=== PATIENT | male | born 1940 | race Caucasian/White ===

== ENCOUNTER 2020-06-14 16:54 | Inpatient (IN) | payer OTHER ==
[~2020-06-14] VITALS: Ht 170.2 cm; Wt 85.8 kg
--- NOTE | 2020-06-14 16:55 | NUR ---
PT BROUGHT IN IFT FROM [facility] FOR CHIEF COMPLAINT OF CP STARTING AT 8 AM. PER REPORT FROM EMS PT WAS RECENTLY DC FROM [facility] FOR NSTEMI 06/13. PRIOR ATTEMPT TO TRASNPORT TO [facility] FOR STENT WAS UNAVAILABLE. PT WAS MEDICATED WITH 324 MG ASA AND NITRO X2. CP HAS SINCE RESOLVED, NO OTHER COMPLAINTS AT THIS TIME.
[2020-06-14] MEDS ORDERED: LEVO50TA5 PO (17:10)
[2020-06-14] MEDS ORDERED: ASPI-498 PO (17:10)
[2020-06-14] MEDS ORDERED: ISOS30TA8 PO (17:10)
[2020-06-14] MEDS ORDERED: CLOP75TA52 PO (17:10)
[2020-06-14] MEDS ORDERED: PANT40TA3 PO (17:10)
[2020-06-14] MEDS ORDERED: METO25TA35 PO (17:10)
[2020-06-14] MEDS ORDERED: GABA-827 PO (17:10)
[2020-06-14] MEDS ORDERED: TAMS-11 PO (17:10)
[2020-06-14] MEDS ORDERED: ESCI10TA PO (17:10)
[2020-06-14] MEDS ORDERED: SIMV20TA19 PO (17:10)
--- NOTE | 2020-06-14 17:19 | NUR ---
ERMD TAY AT BEDSIDE FOR EVAL
[2020-06-14 17:51] LABS: BASOPHILS # (AUTO) 0.03 x10^3/uL (0-0.1); BASOPHILS % (AUTO) 0 % (0-1); EOSINOPHILS # (AUTO) 0.25 x10^3/uL (0-0.4); EOSINOPHILS % (AUTO) 3 % (1-7); LYMPHOCYTES # (AUTO) 1.81 x10^3/uL (1-3.4); LYMPHOCYTES % (AUTO) 23 % (22-44); MD NO; MEAN CORPUSCULAR HEMOGLOBIN 31.6 pg (27.5-34.5); MEAN CORPUSCULAR HGB CONC 33.3 g/dL (33.2-36.2); MEAN CORPUSCULAR VOLUME 95.1 fL (81-97); MEAN PLATELET VOLUME 9.1 fL (7.4-10.4); MONOCYTES # (AUTO) 0.72 x10^3/uL (0.2-0.8); MONOCYTES % (AUTO) 9 % (2-9); NEUTROPHILS # (AUTO) 5.06 x10^3/uL (1.8-6.8); NEUTROPHILS % (AUTO) 64 % (42-75); PLATELET COUNT 188 x10^3/uL (130-400); RED BLOOD COUNT 4.93 x10^6/uL (4.38-5.82); RED CELL DISTRIBUTION WIDTH 13.7 % (9.4-14.8)
--- NOTE | 2020-06-14 17:53 | NUR ---
Pt resting in bed, call light in reach, no complaints at this time.
[2020-06-14 17:57] LABS: ALBUMIN 3.5 g/dL (3.4-5.0); ANION GAP 6 mmol/L (5-15); CALCIUM 8.3 mg/dL (8.5-10.1); CHLORIDE 109 mmol/L (98-107)
[2020-06-14 18:02] LABS: CREATININE 1.08 mg/dL (0.7-1.3); TROPONIN I < 0.015 ng/mL (0.000-0.045)
--- NOTE | 2020-06-14 18:25 | NUR ---
SPOKE WITH PATIENT'S SON YURIY, UPDATED ON POC.
--- NOTE | 2020-06-14 18:52 | NUR ---
REPORT RECEIVED FROM MELE RN. PT RESTING ON [facility], HOSPITALIST AT . MONITORING IN PLACE, CALL LIGHT WITHIN REACH. ALL SAFETY MEASURES IN PLACE.
[2020-06-14] MEDS ORDERED: ONDANSETRON ODT 4 MG PO PRN (19:00)
[2020-06-14] MEDS ORDERED: BISACODYL 10 MG SUPP PR PRN (19:00)
[2020-06-14] MEDS ORDERED: NITROGLYCERIN 0.4 MG BOTTLE (25 TABS) SL PRN (19:00)
[2020-06-14] MEDS ORDERED: morphine SULFATE 10 MG/ML, 1ML IVPush PRN (19:00)
[2020-06-14] MEDS ORDERED: POLYETHYLENE GLYCOL 17 GM PACKET PO PRN (19:00)
[2020-06-14] MEDS ORDERED: DOCUSATE 100 MG CAPSULE PO PRN (19:00)
[2020-06-14] MEDS ORDERED: ACETAMINOPHEN 325 MG TABLET PO PRN (19:00)
--- NOTE | 2020-06-14 19:31 | NUR ---
PT RESTING ON GURNEY, UPDATED ON POC. MONITORING IN PLACE, CALL LIGHT WITHIN REACH. ALL SAFETY MEASURES IN PLACE.
--- NOTE | 2020-06-14 20:10 | NUR ---
EMERGENCY CONTACT CHARLENE SANTANA [phone]
[2020-06-14] MEDS ORDERED: GABAPENTIN 400 MG CAPSULE ONE (20:25)
[2020-06-14] MEDS ORDERED: HEPARIN 5,000 UNITS/ML, 1ML ONE (20:25)
[2020-06-14] MEDS: SODIUM CHLORIDE FLUSH 10ML SYR IVF SCH (20:54)
[2020-06-14] MEDS: GABAPENTIN 400 MG CAPSULE PO SCH (20:54)
[2020-06-14] MEDS: HEPARIN 5,000 UNITS/ML, 1ML SQ SCH (20:54)
--- NOTE | 2020-06-14 20:58 | NUR ---
PT MEDICATED PER MAR, UPDATED ON POC. CALL LIGHT WITHIN REACH, MONITORING IN PLACE.
[2020-06-14] MEDS ORDERED: SIMVASTATIN 20 MG TABLET PO SCH (21:00)
--- NOTE | 2020-06-14 23:26 | NUR ---
TASK RN: REPORT CALLED TO ALY HERRERA. PT PREPARED FOR TRANSPORT. AWAITING ROOM TO BE CLEANED.
[2020-06-14 23:57] LABS: TROPONIN I < 0.015 ng/mL (0.000-0.045)
[2020-06-15 00:09] VITALS: BP 162/96
[2020-06-15] MEDS: LEVOTHYROXINE 50 MCG TABLET PO SCH (05:24)
[2020-06-15] MEDS: HEPARIN 5,000 UNITS/ML, 1ML SQ SCH ×3 (05:25→22:34)
[2020-06-15 05:37] LABS: BASOPHILS # (AUTO) 0.04 x10^3/uL (0-0.1); BASOPHILS % (AUTO) 1 % (0-1); EOSINOPHILS # (AUTO) 0.34 x10^3/uL (0-0.4); EOSINOPHILS % (AUTO) 5 % (1-7); LYMPHOCYTES # (AUTO) 1.84 x10^3/uL (1-3.4); LYMPHOCYTES % (AUTO) 28 % (22-44); MD NO; MEAN CORPUSCULAR HEMOGLOBIN 31.9 pg (27.5-34.5); MEAN CORPUSCULAR HGB CONC 33.7 g/dL (33.2-36.2); MEAN CORPUSCULAR VOLUME 94.6 fL (81-97); MEAN PLATELET VOLUME 9.1 fL (7.4-10.4); MONOCYTES # (AUTO) 0.63 x10^3/uL (0.2-0.8); MONOCYTES % (AUTO) 10 % (2-9); NEUTROPHILS # (AUTO) 3.67 x10^3/uL (1.8-6.8); NEUTROPHILS % (AUTO) 56 % (42-75); PLATELET COUNT 173 x10^3/uL (130-400); RED BLOOD COUNT 4.99 x10^6/uL (4.38-5.82); RED CELL DISTRIBUTION WIDTH 13.3 % (9.4-14.8)
[2020-06-15 05:50] LABS: ANION GAP 6 mmol/L (5-15); CALCIUM 8.6 mg/dL (8.5-10.1); CHLORIDE 110 mmol/L (98-107)
[2020-06-15 05:54] LABS: CREATININE 1.05 mg/dL (0.7-1.3); TROPONIN I < 0.015 ng/mL (0.000-0.045)
[2020-06-15 07:26] VITALS: BP 168/100
[2020-06-15] MEDS: LISINOPRIL 20 MG TABLET PO SCH ×2 (09:00→21:00)
[2020-06-15] MEDS: ASPIRIN 81 MG TABLET EC PO SCH (09:00)
[2020-06-15] MEDS ORDERED: ASPIRIN 325 MG TABLET EC PO SCH (09:00)
[2020-06-15] MEDS: CLOPIDOGREL 75 MG TABLET PO SCH (09:00)
[2020-06-15] MEDS ORDERED: LISINOPRIL 10 MG TABLET PO SCH (09:00)
[2020-06-15] MEDS: TAMSULOSIN 0.4 MG CAP.ER.24H PO SCH (09:00)
[2020-06-15] MEDS: PANTOPRAZOLE 40MG TABLET PO SCH (09:00)
[2020-06-15] MEDS: ESCITALOPRAM 10MG TABLET PO SCH (09:00)
[2020-06-15] MEDS: GABAPENTIN 400 MG CAPSULE PO SCH ×3 (09:00→21:09)
[2020-06-15] MEDS ORDERED: METOPROLOL TARTRATE 25 MG TAB PO SCH (09:00)
[2020-06-15] MEDS ORDERED: ISOSORBIDE MONONITRATE ER 30 MG TABLET PO SCH (09:00)
[2020-06-15] MEDS: SODIUM CHLORIDE FLUSH 10ML SYR IVF SCH ×2 (09:01→21:09)
[2020-06-15] MEDS: ISOSORBIDE MONONITRATE ER 30 MG TABLET PO SCH (09:03)
[2020-06-15] MEDS: METOPROLOL SUCCINATE 50 MG TAB.ER.24H PO SCH (09:03)
[2020-06-15] MEDS: SODIUM CHLORIDE 0.9% 1,000 ML IV SCH ×3 (10:32→18:29)
[2020-06-15 12:27] VITALS: BP 105/65
[2020-06-15] MEDS ORDERED: LIDOCAINE 2%, 20ML ONE (12:46)
[2020-06-15] MEDS ORDERED: TICAGRELOR 90 MG TABLET ONE (12:46)
[2020-06-15] MEDS ORDERED: MIDAZOLAM 1 MG/ML, 5ML ONE (12:46)
[2020-06-15] MEDS ORDERED: BIVALIRUDIN 250 MG ONE ×2 (12:46→14:02)
[2020-06-15] MEDS ORDERED: FENTANYL PF 100 MCG/2ML ONE (12:46)
[2020-06-15] MEDS ORDERED: LIDOCAINE 1%, 20ML ONE (13:48)
[2020-06-15] MEDS ORDERED: NITROGLYCERIN 30 MCG/ML, 20ML VIAL ONE (13:48)
[2020-06-15] MEDS ORDERED: BIVALIRUDIN 250 MG in SODIUM CHLORIDE 0.9% 50 ML IV SCH (14:18)
[2020-06-15 19:42] VITALS: BP 95/57
[2020-06-15] MEDS: ATORVASTATIN 80 MG TABLET PO SCH (21:08)
[2020-06-16 00:52] VITALS: BP 100/54
[2020-06-16] MEDS: METOPROLOL SUCCINATE 50 MG TAB.ER.24H PO SCH (05:23)
[2020-06-16] MEDS: SODIUM CHLORIDE 0.9% 1,000 ML IV SCH (06:01)
[2020-06-16] MEDS: HEPARIN 5,000 UNITS/ML, 1ML SQ SCH ×3 (06:09→21:57)
[2020-06-16] MEDS: LEVOTHYROXINE 50 MCG TABLET PO SCH (06:09)
[2020-06-16 06:35] LABS: ANION GAP 6 mmol/L (5-15); CALCIUM 8.2 mg/dL (8.5-10.1); CHLORIDE 110 mmol/L (98-107); CREATININE 1.07 mg/dL (0.7-1.3)
[2020-06-16 06:37] LABS: BASOPHILS # (AUTO) 0.04 x10^3/uL (0-0.1); BASOPHILS % (AUTO) 1 % (0-1); EOSINOPHILS # (AUTO) 0.32 x10^3/uL (0-0.4); EOSINOPHILS % (AUTO) 4 % (1-7); LYMPHOCYTES # (AUTO) 1.54 x10^3/uL (1-3.4); LYMPHOCYTES % (AUTO) 18 % (22-44); MD NO; MEAN CORPUSCULAR HGB CONC 33.4 g/dL (33.2-36.2); MEAN CORPUSCULAR VOLUME 95.7 fL (81-97); MEAN PLATELET VOLUME 9.8 fL (7.4-10.4); MONOCYTES # (AUTO) 0.76 x10^3/uL (0.2-0.8); MONOCYTES % (AUTO) 9 % (2-9); NEUTROPHILS # (AUTO) 5.94 x10^3/uL (1.8-6.8); NEUTROPHILS % (AUTO) 69 % (42-75); PLATELET COUNT 161 x10^3/uL (130-400); RED BLOOD COUNT 4.32 x10^6/uL (4.38-5.82); RED CELL DISTRIBUTION WIDTH 13.9 % (9.4-14.8)
[2020-06-16 07:17] VITALS: BP 111/65
[2020-06-16] MEDS: ASPIRIN 81 MG TABLET EC PO SCH (08:52)
[2020-06-16] MEDS: TAMSULOSIN 0.4 MG CAP.ER.24H PO SCH (08:52)
[2020-06-16] MEDS: LISINOPRIL 20 MG TABLET PO SCH ×2 (08:52→20:30)
[2020-06-16] MEDS: GABAPENTIN 400 MG CAPSULE PO SCH ×3 (08:52→20:30)
[2020-06-16] MEDS: CLOPIDOGREL 75 MG TABLET PO SCH (08:52)
[2020-06-16] MEDS: PANTOPRAZOLE 40MG TABLET PO SCH (08:52)
[2020-06-16] MEDS: ISOSORBIDE MONONITRATE ER 30 MG TABLET PO SCH (08:53)
[2020-06-16] MEDS: ESCITALOPRAM 10MG TABLET PO SCH (08:53)
[2020-06-16] MEDS: SODIUM CHLORIDE FLUSH 10ML SYR IVF SCH ×2 (08:54→20:29)
[2020-06-16 12:21] VITALS: BP 123/56
[2020-06-16 19:21] VITALS: BP 113/57
[2020-06-16] MEDS: ATORVASTATIN 80 MG TABLET PO SCH (20:30)
[2020-06-17 01:05] VITALS: BP 127/62
[2020-06-17] MEDS: HEPARIN 5,000 UNITS/ML, 1ML SQ SCH ×3 (05:08→21:55)
[2020-06-17] MEDS: LEVOTHYROXINE 50 MCG TABLET PO SCH (05:08)
[2020-06-17 07:15] VITALS: BP 129/62
[2020-06-17] MEDS: LISINOPRIL 20 MG TABLET PO SCH ×2 (08:39→20:00)
[2020-06-17] MEDS: GABAPENTIN 400 MG CAPSULE PO SCH ×3 (08:39→20:00)
[2020-06-17] MEDS: TAMSULOSIN 0.4 MG CAP.ER.24H PO SCH (08:40)
[2020-06-17] MEDS: ASPIRIN 81 MG TABLET EC PO SCH (08:40)
[2020-06-17] MEDS: PANTOPRAZOLE 40MG TABLET PO SCH (08:40)
[2020-06-17] MEDS: CLOPIDOGREL 75 MG TABLET PO SCH (08:40)
[2020-06-17] MEDS: ESCITALOPRAM 10MG TABLET PO SCH (08:41)
[2020-06-17] MEDS: ISOSORBIDE MONONITRATE ER 30 MG TABLET PO SCH (08:41)
[2020-06-17] MEDS: SODIUM CHLORIDE FLUSH 10ML SYR IVF SCH ×2 (08:41→20:00)
[2020-06-17 14:45] VITALS: BP_SYST 104; BP_SYST 88; BP_DIAS 49; BP_DIAS 55
[2020-06-17 19:57] VITALS: BP 118/71
[2020-06-17] MEDS: ATORVASTATIN 80 MG TABLET PO SCH (20:00)
[2020-06-18 01:05] VITALS: BP 135/67
[2020-06-18] MEDS: LEVOTHYROXINE 50 MCG TABLET PO SCH (05:19)
[2020-06-18] MEDS: HEPARIN 5,000 UNITS/ML, 1ML SQ SCH (05:44)
[2020-06-18 07:01] VITALS: BP 131/76
[2020-06-18] MEDS: ISOSORBIDE MONONITRATE ER 30 MG TABLET PO SCH (09:02)
[2020-06-18] MEDS: CLOPIDOGREL 75 MG TABLET PO SCH (09:02)
[2020-06-18] MEDS: LISINOPRIL 20 MG TABLET PO SCH (09:02)
[2020-06-18] MEDS: ASPIRIN 81 MG TABLET EC PO SCH (09:02)
[2020-06-18] MEDS: TAMSULOSIN 0.4 MG CAP.ER.24H PO SCH (09:02)
[2020-06-18] MEDS: GABAPENTIN 400 MG CAPSULE PO SCH (09:02)
[2020-06-18] MEDS: PANTOPRAZOLE 40MG TABLET PO SCH (09:02)
[2020-06-18] MEDS: ESCITALOPRAM 10MG TABLET PO SCH (09:02)
[2020-06-18] MEDS: SODIUM CHLORIDE FLUSH 10ML SYR IVF SCH (09:03)
[2020-06-18] MEDS ORDERED: ISOS30TA8 PO (10:08)
[2020-06-18] MEDS ORDERED: ATOR-2 PO (10:08)
[2020-06-18] MEDS ORDERED: ASPI81TA45 PO (10:08)
[2020-06-18] MEDS ORDERED: LISI-170 PO (10:08)
[2020-06-18] MEDS ORDERED: TAMS-11 PO (10:08)
[2020-06-18] MEDS ORDERED: NITR0.4T28 SL (10:08)
[2020-06-18 12:35] VITALS: BP 99/63
== END 2020-06-18 14:00 | disposition home or self-care (01) | DRG 246 ==
LOC: ED 18:12 → EDIP 18:17 → INTOOBSV 18:17 → 5SO 23:36 → OBSVTOIN 06-15 14:43
PROVIDERS: ADMIT Family Medicine; ATTEND Internal Medicine
PROC: B2181ZZ Fluoroscopy of Left Internal Mammary Bypass Graft using Low Osmolar Contrast (ICD-10-PCS; principal; 2020-06-15)
PROC: 027034Z Dilation of Coronary Artery, One Artery with Drug-eluting Intraluminal Device, Percutaneous Approach (ICD-10-PCS; 2020-06-15)
PROC: B2171ZZ Fluoroscopy of Right Internal Mammary Bypass Graft using Low Osmolar Contrast (ICD-10-PCS; 2020-06-15)
PROC: 4A023N7 Measurement of Cardiac Sampling and Pressure, Left Heart, Percutaneous Approach (ICD-10-PCS; 2020-06-15)
PROC: B2111ZZ Fluoroscopy of Multiple Coronary Arteries using Low Osmolar Contrast (ICD-10-PCS; 2020-06-15)
PROC: B2151ZZ Fluoroscopy of Left Heart using Low Osmolar Contrast (ICD-10-PCS; 2020-06-15)
PROC: B3101ZZ Fluoroscopy of Thoracic Aorta using Low Osmolar Contrast (ICD-10-PCS; 2020-06-15)
DX: T82.218A Other mechanical complication of coronary artery bypass graft, initial encounter (principal); I21.4 Non-ST elevation (NSTEMI) myocardial infarction; I25.110 Atherosclerotic heart disease of native coronary artery with unstable angina pectoris; R07.89 Other chest pain; E03.9 Hypothyroidism, unspecified; E78.5 Hyperlipidemia, unspecified; F32.9 Major depressive disorder, single episode, unspecified; F41.9 Anxiety disorder, unspecified; I10 Essential (primary) hypertension; I25.82 Chronic total occlusion of coronary artery; K21.9 Gastro-esophageal reflux disease without esophagitis; N40.0 Benign prostatic hyperplasia without lower urinary tract symptoms; R33.9 Retention of urine, unspecified; I25.9 Chronic ischemic heart disease, unspecified; Z80.9 Family history of malignant neoplasm, unspecified; Z87.891 Personal history of nicotine dependence; Z95.1 Presence of aortocoronary bypass graft; Z90.49 Acquired absence of other specified parts of digestive tract; Z79.82 Long term (current) use of aspirin; Z79.899 Other long term (current) drug therapy; Z88.0 Allergy status to penicillin; Y83.2 Surgical operation with anastomosis, bypass or graft as the cause of abnormal reaction of the patient, or of later complication, without mention of misadventure at the time of the procedure; Y92.098 Other place in other non-institutional residence as the place of occurrence of the external cause
CPT/HCPCS: 36415; 93458; 93567; C9600; J3490; 80048; 82040; 84484; 85025; 93005; 99156; 99157; C1760; C1769; C1894; G0378; J0583; J1644; J2250; J3010; C1725; C1874; C1887; J7030; Q9967